=== PATIENT | male | born 1985 | race Caucasian/White ===

== ENCOUNTER 2016-12-02 15:46 | Emergency (ER) | payer OTHER ==
--- NOTE | 2016-12-08 08:47 | ER ---
ADMIT: 12/02/2016 RM/LOC: ER [facility] MR#: [id number] [address] [id number] [place] [address] [place] [address] Emergency Room Report SEX: M AGE: 31 : 1985 DATE: 12/02/2016 CHIEF COMPLAINT: Left calf bruising. HISTORY OF PRESENT ILLNESS: This is a pleasant 31-year-old white male, who presents with about 3 hours duration of some bruising to his left calf. 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 Denies any known injury. Does note a small mass on his posterior left knee associated with some tenderness and erythema. Is concerned about a DVT PE as his father secondary to complications of the PE. No chest pain, shortness of breath, rapid heart rate, or fever. He was able to walk his entire medical route today without problems. COURSE IN THE EMERGENCY ROOM: The patient was seen and examined. He is in no acute distress. He is alert. He does have some bruising on the right calf without any associated tenderness. He does have a small fluctuant mass on the posterior side of his left knee, so there is a little bit of erythema and a pointing mass. Homans' sign is negative. Heart is regular rate and rhythm. Lungs are clear. He does not have any tenderness to deep palpation of the calf muscle itself. I did use an 18-gauge needle to open the abscess on his posterior left knee which did not drain any purulent fluid. IMPRESSION: 1. Left calf contusion. 2. Left posterior knee abscess. DISPOSITION: I did start him on Keflex 500 mg p.o. b.i.d. for 3 days. He is to apply ice and heat to that knee. Continue to monitor for any worsening signs or symptoms. Follow up with his regular physician as needed. Questions were sought and answered to the best of my ability and to the patient's satisfaction. Discharged in stable condition. MARIANA Dillon / Miguelito Green MD / dat JOB #: [id number] CC: Miguelito Green MD, Attending Physician Brian King MD, Family Physician
== END 2016-12-02 16:36 | disposition home or self-care (01) ==
LOC: ER 15:46
PROC: 0H9LXZZ Drainage of Left Lower Leg Skin, External Approach (ICD-10-PCS; principal; 2016-12-02)
DX: L02.416 Cutaneous abscess of left lower limb (principal); S80.12XA Contusion of left lower leg, initial encounter; F17.210 Nicotine dependence, cigarettes, uncomplicated; Z79.899 Other long term (current) drug therapy; Z85.72 Personal history of non-Hodgkin lymphomas; X58.XXXA Exposure to other specified factors, initial encounter